=== PATIENT | female | born 1975 | race Caucasian/White ===

== ENCOUNTER 2021-07-21 07:00 | Inpatient (IN) | payer MEDICAID ==
[~2021-07-21] VITALS: Ht 162.6 cm; Wt 80.7 kg
[2021-07-21] MEDS ORDERED: KETOROLAC 60MG/2ML VIAL IM ONE (07:45)
[2021-07-21] MEDS ORDERED: HYDROCODONE/ACETAMINOPHEN 5/325MG TABLET PO ONE (10:15)
[2021-07-21] MEDS ORDERED: HYDR-4001 MT (12:51)
[2021-07-21] MEDS ORDERED: LORAZEPAM 2MG/ML CPJ IV ONE (21:15)
[2021-07-22 05:12] LABS: HEMATOCRIT 41.4 % (36.0-48.0); HEMOGLOBIN 14.2 g/dL (12.0-16.0); MEAN CORPUSCULAR HEMOGLOBIN 30.8 pg (28.0-32.0); PLATELET 271 x1000/uL (130-400); RED BLOOD CELL COUNT 4.61 mill/uL (4.2-5.4)
[2021-07-22 05:19] LABS: CHLORIDE 105 mEq/L (98-107)
[2021-07-22] MEDS ORDERED: MORPHINE SULFATE 4 MG/ML CPJ (NOT FOR IM USE) IV ONE ×2 (07:00→09:15)
[2021-07-22] MEDS ORDERED: IOHEXOL-350 100 ML BOTTLE ONE (07:19)
[2021-07-22] MEDS ORDERED: HEPARIN 25,000 UNITS PREMIX 250 ML IV STA (09:03)
[2021-07-22] MEDS ORDERED: HEPARIN 5000 UNITS/ML VIAL IV ONE (09:15)
[2021-07-22] MEDS ORDERED: ETOMIDATE 2MG/ML 10ML VIAL IV ONE (09:15)
[2021-07-22 09:31] LABS: HCG SCREEN NEGATIVE
[2021-07-22 09:36] LABS: PARTIAL THROMBOPLASTIN TIME 26.6 sec (23.4-31.0); PROTHROMBIN TIME 10.8 sec (9.6-11.0)
[2021-07-22] MEDS ORDERED: ONDANSETRON HCL 4MG/2ML INJ IV ONE (10:45)
[2021-07-22] MEDS ORDERED: HEPARIN 25,000 UNITS PREMIX 250 ML IV PRN (12:00)
[2021-07-22] MEDS ORDERED: HEPARIN 5000 UNITS/ML VIAL IV PRN ×4 (12:00→12:35)
[2021-07-22 16:00] VITALS: BP 173/82
[2021-07-22] MEDS ORDERED: DOCUSATE SODIUM 100MG CAPSULE PO PRN (16:15)
[2021-07-22] MEDS ORDERED: ONDANSETRON HCL 4MG/2ML INJ IV PRN (16:15)
[2021-07-22] MEDS ORDERED: DEXTROSE 50% WATER 50ML SYRINGE IV PRN ×2 (16:15)
[2021-07-22] MEDS ORDERED: MAGNESIUM/ALUMINUM HYDROXIDE/SIMETHICONE 30ML UDC PO PRN (16:15)
[2021-07-22 16:40] VITALS: BP 137/72
[2021-07-22] MEDS ORDERED: NALOXONE HCL 0.4MG/ML VIAL IV PRN (16:45)
[2021-07-22] MEDS: BLOOD SUGAR DIAGNOSTIC STRIP TEST SCH ×2 (16:54→21:00)
[2021-07-22] MEDS: INSULIN LISPRO 100 UNITS/ML SUBCUT SCH ×2 (17:10→22:25)
[2021-07-22] MEDS: ENOXAPARIN 100MG/ML SYR SUBCUT SCH (17:36)
[2021-07-22] MEDS: CLONIDINE 0.1MG TABLET PO PRN (18:45)
[2021-07-22] MEDS: HYDROCODONE/ACETAMINOPHEN 5/325MG TABLET PO PRN (18:46)
[2021-07-22 20:00] VITALS: BP 145/77
[2021-07-23 04:00] VITALS: BP 170/80
[2021-07-23] MEDS: ACETAMINOPHEN 325MG TABLET PO PRN ×2 (05:23→09:54)
[2021-07-23] MEDS: ENOXAPARIN 100MG/ML SYR SUBCUT SCH (05:31)
[2021-07-23] MEDS: BLOOD SUGAR DIAGNOSTIC STRIP TEST SCH ×4 (06:50→21:30)
[2021-07-23] MEDS: INSULIN LISPRO 100 UNITS/ML SUBCUT SCH ×4 (07:21→21:00)
[2021-07-23 07:23] LABS: BASOPHILS % 0.3 % (0.0-2.0); EOSINOPHILS % 1.5 % (0.0-5.0); HEMATOCRIT. 40.6 % (36.0-48.0); HEMOGLOBIN. 13.8 g/dL (12.0-16.0); LYMPHOCYTES % 20.8 % (20.0-50.0); MEAN CORPUSCULAR HEMOGLOBIN 30.6 pg (28.0-32.0); MEAN PLATELET VOLUME 8.9 fl (7.4-10.4); MONOCYTES % 4.8 % (2.0-8.0); NEUTROPHILS % 72.6 % (40.0-76.0); PLATELET 289 x1000/uL (130-400); RED BLOOD CELL COUNT 4.51 mill/uL (4.2-5.4); RED CELL DISTRIBUTION WIDTH 13.2 % (11.6-14.6)
[2021-07-23 07:26] LABS: CHLORIDE 103 mEq/L (98-107)
[2021-07-23 07:45] LABS: LDL CHOLESTEROL 91 mg/dL (5-100); PHOSPHORUS 4.4 mg/dL (2.5-4.9)
[2021-07-23 07:48] LABS: HDL CHOLESTEROL 27 mg/dL (40-59)
[2021-07-23 08:00] VITALS: BP 156/77
[2021-07-23] MEDS: OMEPRAZOLE 20MG CAPSULE EXTENDED RELEASE PO SCH (09:53)
[2021-07-23] MEDS: CLONIDINE 0.1MG TABLET PO PRN (09:54)
[2021-07-23 12:00] VITALS: BP 126/67
[2021-07-23 16:00] VITALS: BP 157/84
[2021-07-23] MEDS ORDERED: APIX5TAB MT (18:10)
[2021-07-23] MEDS: ENOXAPARIN 80MG/0.8ML SYR SUBCUT SCH (18:44)
[2021-07-23 20:00] VITALS: BP 155/92
[2021-07-23] MEDS: HYDROCODONE/ACETAMINOPHEN 5/325MG TABLET PO PRN (21:36)
[2021-07-24] VITALS: BP 144/83
[2021-07-24 04:00] VITALS: BP 130/86
[2021-07-24] MEDS: HYDROCODONE/ACETAMINOPHEN 5/325MG TABLET PO PRN ×2 (04:34→16:37)
[2021-07-24] MEDS: BLOOD SUGAR DIAGNOSTIC STRIP TEST SCH ×2 (06:39→11:40)
[2021-07-24] MEDS: OMEPRAZOLE 20MG CAPSULE EXTENDED RELEASE PO SCH (06:50)
[2021-07-24] MEDS: ENOXAPARIN 80MG/0.8ML SYR SUBCUT SCH (06:50)
[2021-07-24 07:44] LABS: BASOPHILS % 0.4 % (0.0-2.0); EOSINOPHILS % 2.3 % (0.0-5.0); HEMATOCRIT. 40.3 % (36.0-48.0); LYMPHOCYTES % 26.8 % (20.0-50.0); MEAN CORPUSCULAR HEMOGLOBIN 31.2 pg (28.0-32.0); MEAN CORPUSCULAR VOLUME 89.5 fL (81.0-99.0); MEAN PLATELET VOLUME 8.4 fl (7.4-10.4); MONOCYTES % 5.3 % (2.0-8.0); NEUTROPHILS % 65.2 % (40.0-76.0); PLATELET 284 x1000/uL (130-400); RED CELL DISTRIBUTION WIDTH 12.8 % (11.6-14.6)
[2021-07-24 08:00] VITALS: BP 141/77
[2021-07-24 08:05] LABS: CHLORIDE 103 mEq/L (98-107)
[2021-07-24 08:14] LABS: PHOSPHORUS 4.8 mg/dL (2.5-4.9)
[2021-07-24] MEDS: INSULIN LISPRO 100 UNITS/ML SUBCUT SCH ×2 (08:22→13:02)
[2021-07-24 12:00] VITALS: BP 151/86
[2021-07-24 15:42] VITALS: BP 155/75
[2021-07-24 16:37] VITALS: BP 155/75
[2021-07-25] MEDS ORDERED: FAMOTIDINE 20MG TABLET PO SCH (06:40)
== END 2021-07-24 14:45 | disposition home or self-care (01) | DRG 342 ==
LOC: ER 07:00 → 7EST 07-22 11:08 → ENRESERV 07-22 12:32 → EDBEDREQ 07-22 13:55
PROVIDERS: ADMIT Internal Medicine; ATTEND Internal Medicine
PROC: 0SSDXZZ Reposition Left Knee Joint, External Approach (ICD-10-PCS; principal; 2021-07-22)
DX: M22.02 Recurrent dislocation of patella, left knee (principal); I74.3 Embolism and thrombosis of arteries of the lower extremities; E11.65 Type 2 diabetes mellitus with hyperglycemia; E66.9 Obesity, unspecified; E78.5 Hyperlipidemia, unspecified; Z71.3 Dietary counseling and surveillance; R74.01 Elevation of levels of liver transaminase levels; Z68.30 Body mass index [BMI] 30.0-30.9, adult; Z79.899 Other long term (current) drug therapy; Z90.49 Acquired absence of other specified parts of digestive tract
CPT/HCPCS: 36415; 71045; 73560; 73706; 80048; 80053; 80061; 80076; 82962; 83036; 83735; 84100; 84703; 85025; 85027; 99285; J1644; J1650; J1815; J1885; J2060; J2270; J2405; J3490; J7040; Q9967